=== PATIENT | male | born 1965 ===

== ENCOUNTER 2019-10-08 17:53 | Emergency (ER) | payer OTHER, SELFPAY ==
[2019-10-08 18:52] VITALS: BP 114/63; PULSE 74; RESP 16; TEMP 36.9; O2SAT 98
--- NOTE | 2019-10-08 19:41 | ED.EAR ---
HPI - Ear Problem General Chief complaint: Ear Stated complaint: Pressure/Ears Time Seen by Provider: 10/08/19 19:41 Source: patient and RN notes reviewed Mode of arrival: ambulatory Limitations: no limitations History of Present Illness HPI Narrative: 54 year old male who presents to [facility] with three day history of right ear pressure with tinnitus and one day history of left ear pressure.Patient presently denies any tinnitus, states that he wears ear plugs at work which aggravates his ear discomfort. Patient states that he was seen in the [facility] about a month ago and was treated for ear infection with antibiotic and Claritin. Patient states that he has had no fevers, chills, or sweats, denies any nasal congestion or drainage or any sore throat. MD Complaint: ear pain Location: bilateral (3 days right, 1 day left) Duration: constant Severity: moderate Relieving factors: nothing Exacerbating factors: nothing Context: Reports other (one month ago right ear infection) Discharge from ear: Reports no Associated symptoms ear: tinnitus (right) Treatment prior to arrival: none Related Data Home Medications Medication Instructions Recorded Confirmed lisinopril 10 mg DAILY 09/11/19 10/08/19 simvastatin 20 mg DAILY 09/11/19 10/08/19 tamsulosin 0.4 mg PO DAILY 09/11/19 10/08/19 Allergies Allergy/AdvReac Type Severity Reaction Status Date / Time No Known Allergies Allergy Verified 10/08/19 19:00 Review of Systems Review of Systems: Narrative: CONSTITUTIONAL: Denies fever, chills, or sweats. EYES: Denies visual changes, redness, or discharge. ENT: Denies rhinorrhea, congestion, sore throat, bilateral otalgia, intermittent tinnitus right ear CARDIOVASCULAR: Denies chest pain, palpitations, or edema. RESPIRATORY: Denies cough or dyspnea. GASTROINTESTINAL: Denies abdominal pain, nausea, vomiting, or diarrhea. GENITOURINARY: Denies dysuria or hematuria. SKIN: Denies rash or itching. MUSCULOSKELETAL: Denies back pain, joint pain, or myalgia. NEUROLOGIC: Denies headache, numbness, or weakness. PSYCHIATRIC: Denies anxiety or depression. All systems reviewed & are unremarkable except as noted in HPI and below PMFSH Past Medical History Medical History Enlarged prostate HTN (hypertension) Hypercholesterolemia Social History Social History (Updated 10/15/19 @ 20:53 by Ashley Zacarias NP) Smoking status: Never smoker Alcohol intake: never Substance use: never Living arrangements: with family Gender identity (if verbalized by the patient): Male Comments At time of signature, agree with nursing past medical, social and family history. There is no relevant family history pertinent to the presenting complaint Exam Narrative: Exam Narrative: GENERAL: Well-appearing, well-nourished, and in no acute distress. HEAD: Normocephalic, atraumatic. EYES: PERRLA and EOMI. ENT: Nares clear, no rhinorrhea or epistaxis. Mucous membranes moist. Bilateral TM's have cloudy appearance with injection, no drainage from ears or any redness to canals. NECK: Supple.no lymphadenopathy CHEST: Clear to auscultation. No respiratory distress.SAO2 98% on room air HEART: Regular rate and rhythm. No murmur heard. Normal peripheral pulses. ABDOMEN: Soft, nontender, nondistended, normal active bowel sounds. EXTREMITIES: Normal range of motion. No edema. SKIN: Warm, dry, no rash. NEURO: No focal deficits. Alert and oriented x3. Course Vital Signs Vital signs: Vital Signs Temperature 36.9 C 10/08/19 18:52 Pulse Rate 74 10/08/19 18:52 Respiratory Rate 16 10/08/19 18:52 Blood Pressure 114/63 10/08/19 18:52 Pulse Oximetry 98 10/08/19 18:52 Temperature 36.9 C 10/08/19 18:52 Pulse Rate 74 10/08/19 18:52 Respiratory Rate 16 10/08/19 18:52 Blood Pressure 114/63 10/08/19 18:52 Pulse Oximetry 98 10/08/19 18:52 Medical Decision Making Differenti
== END 2019-10-08 20:01 | disposition home or self-care (01) ==
PROVIDERS: Emergency Provider Registered Nurse
DX: H65.06 Acute serous otitis media, recurrent, bilateral (principal); N40.0 Benign prostatic hyperplasia without lower urinary tract symptoms; I10 Essential (primary) hypertension; E78.00 Pure hypercholesterolemia, unspecified
CPT/HCPCS: 99213; G0463